=== PATIENT | male | born 1995 | race Caucasian/White ===

== ENCOUNTER 2018-04-10 01:46 | Emergency (ER) | payer BC ==
[2018-04-10] MEDS ORDERED: Sodium Chloride 0.9% 1000 ML 1,000 ML IV STA (02:03)
--- NOTE | 2018-04-10 02:03 | ERPHSYRPT ---
- History of Present Illness Source: patient, police Exam Limitations: no limitations Timing/Duration: day(s) (3), worse Severity of Symptoms-Max: moderate Severity of Symptoms-Current: mild Context related to: significant other Suicidal thoughts: specific plan Associated Symptoms: depressed, suicidal ideation Previous symptoms: same symptoms as today, no recent treatment <TAYLER MAYFIELD - Last Filed: 04/10/18 07:06> <DRAKE OVALLES - Last Filed: 04/10/18 10:23> - History of Present Illness Time Seen by Provider: 04/10/18 01:56 Physician History: The patient is a 22-year-old male brought in by police from home where he stated by text to his that he knows where the "pointy things are and how to use them". He states he is very stressed and depressed because his is bipolar and has made him stressed and depressed because of her condition. This happens to him every 3 or 4 years. He is been stressed for the past few days. When he gets stressed, he drinks alcohol. This evening he drank a 750 mL bottle of rum and about [address] Morales. He states that he had been feeling like killing himself with a knife. He denies wanting to harm anyone else. He has cut his forearms in the past but just superficially. He has never been evaluated by psychiatry or has he ever been in a psychiatric hospital. He has never seen the [facility]. He has no doctor. He takes no medicines. (TAYLER MAYFIELD) Allergies/Adverse Reactions: cephalexin [From Keflex] Allergy (Mild, Verified 04/10/18 02:05) Hives Home Medications: No Reportable Medications [No Reported Medications] 04/10/18 [History] - Review of Systems Constitutional: No Fever, No Chills Eyes: No Symptoms Ears, Nose, & Throat: No Symptoms Respiratory: No Cough, No Dyspnea Cardiac: No Chest Pain, No Edema, No Syncope Abdominal/Gastrointestinal: No Abdominal Pain, No Nausea, No Vomiting, No Diarrhea Genitourinary Symptoms: No Dysuria Musculoskeletal: No Back Pain, No Neck Pain Skin: No Rash Neurological: No Dizziness, No Focal Weakness, No Sensory Changes Psychological: Depression, Suicidal Ideations Endocrine: No Symptoms Hematologic/Lymphatic: No Symptoms Immunological/Allergic: No Symptoms All Other Systems: Reviewed and Negative <TAYLER MAYFIELD - Last Filed: 04/10/18 07:06> - Physical Exam General Appearance: no apparent distress Eyes, Ears, Nose, Throat Exam: normal ENT inspection, moist mucous membranes Neck Exam: normal inspection, non-tender, supple Respiratory Exam: normal breath sounds, lungs clear, No respiratory distress Cardiovascular Exam: regular rate/rhythm, No edema Gastrointestinal/Abdominal Exam: soft, No tenderness, No distention Extremities Exam: normal inspection, normal range of motion, No evidence of injury, No edema Current Suicidality: has suicide plan Neurological Exam: alert, oriented x 3, depressed affect Appearance: appropriate appearance, appropriate insight Behavior/Eye Contact/Speech: alert & cooperative, cooperative, normal speech Thoughts/Hallucinations: normal thought pattern Skin Exam: normal color, warm, dry, No rash SpO2 Interpretation: normal Oxygen Delivery: Room Air <TAYLER MAYFIELD - Last Filed: 04/10/18 07:06> - Nursing Vital Signs Nursing Vital Signs: Initial Vital Signs Temperature 99 F 04/10/18 01:48 Pulse Rate 100 H 04/10/18 01:48 Respiratory Rate 22 04/10/18 01:48 Blood Pressure 141/92 04/10/18 01:48 O2 Sat by Pulse Oximetry 94 L 04/10/18 01:48 Pain Scale Pain Intensity 0 Ordered Tests: Active Orders 24 hr Category Date Time Status EKG-ER Only STAT Care 04/10/18 02:03 Active IV Insertion STAT Care 04/10/18 02:03 Active Psychiatric Evaluation STAT Care 04/10/18 02:03 Active ACETAMINOPHEN Stat Lab 04/10/18 02:55 Completed CBC W DIFF Stat Lab 04/10/18 02:55 Completed CMP Stat Lab 04/10/18 02:55 Completed ETHYL ALCOHOL Stat Lab 04/10/18 02:55 Completed SALICYLATE Stat Lab 04/10/18 02:55 Completed TSH [TSH, 3RD Generation] Stat Lab 04/10/18 02:55 Completed UA W/RFX UR CULTURE Stat Lab 04/10/18 02:56 Completed Urine Triage Profile Stat Lab 04/10/18 02:56 Completed Medication Summary Discontinued Medications Generic Name Dose Route Start Last Admin Trade Name Freq PRN Reason Stop Dose Admin Sodium Chloride 1,000 mls @ 999 mls/hr 04/10/18 02:03 04/10/18 08:34 Sodium Chloride 0.9% 1000 Ml IV 04/10/18 03:03 Infused .Q1H1M STA Infusion Sodium Chloride Confirm 04/10/18 02:52 Sodium Chloride 0.9% 1000 Ml Administered 04/10/18 02:53 Dose 1,000 mls @ ud .ROUTE .K-MED ONE Lab/Rad Data: Laboratory Result Diagrams 04/10/18 02:55 04/10/18 02:55 Laboratory Results 04/10/18 04/10/18 04/10/18 Range/Units 02:56 02:56 02:55 WBC (4.0-10.5) K/mm3 RBC (4.1-5.6) M/mm3 Hgb (12.5-18.0) gm/dl Hct (42-50) % MCV (78-100) fl MCH (26-32) pg MCHC (32-36) g/dl RDW (11.5-14.0) % Plt Count (150-450) K/mm3 MPV (6-9.5) fl Gran % (36.0-66.0) % Eos # (Auto) (0-0.5) Absolute Lymphs (auto) (1.0-4.6) Absolute Monos (auto) (0.0-1.3) Lymphocytes % (24.0-44.0) % Monocytes % (0.0-12.0) % Eosinophils % (0.00-5.0) % Basophils % (0.0-0.4) % Absolute Granulocytes (1.4-6.9) Basophils # (0-0.4) Sodium (137-145) mmol/L Potassium (3.5-5.1) mmol/L Chloride (98-107) mmol/L Carbon Dioxide (22-30) mmol/L Anion Gap (5-15) MEQ/L BUN (9-20) mg/dL Creatinine (0.66-1.25) mg/dL Estimated GFR ML/MIN Glucose (74-106) mg/dL Calcium (8.4-10.2) mg/dL Total Bilirubin (0.2-1.3) mg/dL AST (17-59) U/L ALT (0-50) U/L Alkaline Phosphatase (38-126) U/L Serum Total Protein (6.3-8.2) g/dL Albumin (3.5-5.0) g/dL TSH 3rd Generation 4.250 (0.47-4.68) mIU/L Ur Collection Type VOID Urine Color YELLOW (YELLOW) Urine Appearance CLEAR (CLEAR) Urine pH 5.0 (5-6) Ur Specific [place] 1.010 (1.005-1.025) Urine Protein NEGATIVE (Negative) Urine Ketones NEGATIVE (NEGATIVE) Urine Blood NEGATIVE (0-5) Elder/ul Urine Nitrite NEGATIVE (NEGATIVE) Urine Bilirubin NEGATIVE (NEGATIVE) Urine Urobilinogen NORMAL (0-1) mg/dL Ur Leukocyte Esterase NEGATIVE (NEGATIVE) Urine Culture Reflexed NO (NO) Urine Glucose NEGATIVE (NEGATIVE) mg/dL Salicylates (2-20) mg/dL Urine Opiates Level NEGATIVE (NEGATIVE) Ur Methadone NEGATIVE (NEGATIVE) Acetaminophen (10-30) ug/ml Urine Barbiturates NEGATIVE (NEGATIVE) Ur Phencyclidine (PCP) NEGATIVE (NEGATIVE) Urine Amphetamine NEGATIVE (NEGATIVE) U Benzodiazepine Level NEGATIVE (NEGATIVE) Urine Cocaine NEGATIVE (NEGATIVE) Urine Marijuana (THC) NEGATIVE (NEGATIVE) Ethyl Alcohol (0-10) mg/dL Specimen Received 04/10/18 0245 04/10/18 04/10/18 Range/Units 02:55 02:55 WBC 6.1 (4.0-10.5) K/mm3 RBC 5.53 (4.1-5.6) M/mm3 Hgb 15.8 (12.5-18.0) gm/dl Hct 44.4 (42-50) % MCV 80.3 (78-100) fl MCH 28.6 (26-32) pg MCHC 35.6 (32-36) g/dl RDW 12.9 (11.5-14.0) % Plt Count 199 (150-450) K/mm3 MPV 10.4 H (6-9.5) fl Gran % 55.3 (36.0-66.0) % Eos # (Auto) 0.06 (0-0.5) Absolute Lymphs (auto) 1.94 (1.0-4.6) Absolute Monos (auto) 0.67 (0.0-1.3) Lymphocytes % 32.0 (24.0-44.0) % Monocytes % 11.0 (0.0-12.0) % Eosinophils % 1.0 (0.00-5.0) % Basophils % 0.7 (0.0-0.4) % Absolute Granulocytes 3.36 (1.4-6.9) Basophils # 0.04 (0-0.4) Sodium 144 (137-145) mmol/L Potassium 3.7 (3.5-5.1) mmol/L Chloride 106 (98-107) mmol/L Carbon Dioxide 27 (22-30) mmol/L Anion Gap 15.0 (5-15) MEQ/L BUN 14 (9-20) mg/dL Creatinine 0.83 (0.66-1.25) mg/dL Estimated GFR > 60.0 ML/MIN Glucose 111 H (74-106) mg/dL Calcium 9.4 (8.4-10.2) mg/dL Total Bilirubin 0.40 (0.2-1.3) mg/dL AST 37 (17-59) U/L ALT 77 H (0-50) U/L Alkaline Phosphatase 71 (38-126) U/L Serum Total Protein 7.5 (6.3-8.2) g/dL Albumin 4.6 (3.5-5.0) g/dL TSH 3rd Generation (0.47-4.68) mIU/L Ur Collection Type Urine Color (YELLOW) Urine Appearance (CLEAR) Urine pH (5-6) Ur Specific [place] (1.005-1.025) Urine Protein (Negative) Urine Ketones (NEGATIVE) Urine Blood (0-5) Elder/ul Urine Nitrite (NEGATIVE) Urine Bilirubin (NEGATIVE) Urine Urobilinogen (0-1) mg/dL Ur Leukocyte Esterase (NEGATIVE) Urine Culture Reflexed (NO) Urine Glucose (NEGATIVE) mg/dL Salicylates < 1.0 L (2-20) mg/dL Urine Opiates Level (NEGATIVE) Ur Methadone (NEGATIVE) Acetaminophen < 10 L (10-30) ug/ml Urine Barbiturates (NEGATIVE) Ur Phencyclidine (PCP) (NEGATIVE) Urine Amphetamine (NEGATIVE) U Benzodiazepine Level (NEGATIVE) Urine Cocaine (NEGATIVE) Urine Marijuana (THC) (NEGATIVE) Ethyl Alcohol 70 H (0-10) mg/dL Specimen Received <TAYLER MAYFIELD - Last Filed: 04/10/18 07:06> - Progress Progress: improved <DRAKE OVALLES - Last Filed: 04/10/18 10:23> - Progress Progress Note: 04/10/18 07:06 Pt care discussed and care transferred to Dr Ovalles at 07:00. (TAYLER MAYFIELD) 04/10/18 09:43 This is a 22-year-old white male who was initially seen by Dr. Mayfield Patient apparently has been having suicidal ideations thinking about harming himself with a knife he had been drinking Consuming of approximately 750 mL of from him 300 mL of vodka prior to arrival Patient has been upset over interactions with his he states his stresses him out. He currently states he does not want to harm himself. He has been evaluated by [facility]. Patient states he had some superficial cutting in the past he denies any significant past medical history. He states he is not taking any pills he has not taken any pills to harm himself. He denies any illicit drug use. Past medical history patient denies. Past surgical history history of a fractured arm in the past (left) Physical examination. Well-developed well-nourished white male he is alert oriented pleasant cooperative to examination. head is atraumatic normocephalic. Eyes PERRLA EOMI fundi unremarkable. Ears TMs thakkar intact bilaterally. Nose is clear. Throat is clear. Neck is supple. Lungs are clear. Heart regular rate and rhythm without murmur. Abdomen soft nontender nondistended positive bowel sounds. Extremities full range of motion pulse equal symmetrical 2 over 4. 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 Patient is pleasant and cooperative to examination. Labs CBC white blood cell 6.1 hemoglobin 15.8 hematocrit 44.4. Chemistry is within normal limits. Acetaminophen less than 10. Salicylate less than 1.0. Blood alcohol 70. Impression suicidal ideation. Depression. Plan. Case has been referred to [facility]. Telepsyche has been performed. Will plan to discharge as per their recommendations. Patient will need to follow-up with [facility] as outpatient. (DRAKE OVALLES) <TAYLER MAYFIELD - Last Filed: 04/10/18 07:06> - Departure Time of Disposition: 10:22 Departure Disposition: Home Critical Care Time: No <JOSEDRAKE - Last Filed: 04/10/18 10:23> - Departure Clinical Impression: Suicidal ideation Depression Qualifiers: Depression Type: unspecified Qualified Code(s): F32.9 - Major depressive disorder, single episode, unspecified Condition: Fair Referrals: DOCTOR,NO FAMILY [Primary Care Provider] - [facility] [Outside] Additional Instructions: Return home. No further alcohol consumption today. Follow-up with [facility] call and arrange appointment. Return for acute distress or any problems.
[2018-04-10] MEDS ORDERED: Sodium Chloride 0.9% 1000 ML 1,000 ML ONE (02:52)
[2018-04-10 02:58] LABS: BASOPHIL % 0.7 % (0.0-0.4); Basophil (Absolute #) 0.04 (0-0.4); Eosinophil (Absolute #) 0.06 (0-0.5); Granulocyte Absolute (ANC) 3.36 (1.4-6.9); Granulocytes % 55.3 % (36.0-66.0); Hematocrit 44.4 % (42-50); Hemoglobin 15.8 gm/dl (12.5-18.0); Lymphocyte (Absolute #) 1.94 (1.0-4.6); Mean Cell Volume 80.3 fl (78-100); Mean Corpuscular Hemoglobin 28.6 pg (26-32); Mean Corpuscular Hgb Concent. 35.6 g/dl (32-36); Mean Platelet Volume 10.4 fl (6-9.5); Monocyte (Absolute #) 0.67 (0.0-1.3); Platelet Count 199 K/mm3 (150-450); Red Blood Count 5.53 M/mm3 (4.1-5.6); Red Cell Distribution Width 12.9 % (11.5-14.0); White Blood Count 6.1 K/mm3 (4.0-10.5)
[2018-04-10 03:00] LABS: Appearance CLEAR (CLEAR); Bilirubin NEGATIVE (NEGATIVE); Blood NEGATIVE Ery/ul (0-5); Glucose NEGATIVE (NEGATIVE); Ketones NEGATIVE (NEGATIVE); Leukocyte Esterase NEGATIVE (NEGATIVE); Nitrite NEGATIVE (NEGATIVE); Protein,Urine Dip NEGATIVE (Negative); Urobilinogen NORMAL mg/dL (0-1)
[2018-04-10 03:16] LABS: Amphetamine,Urine NEGATIVE (NEGATIVE); Barbiturate,Urine NEGATIVE (NEGATIVE); Benzodiazepine,Urine NEGATIVE (NEGATIVE); Cocaine,Urine NEGATIVE (NEGATIVE); Methadone,Urine NEGATIVE (NEGATIVE); Opiate,Urine NEGATIVE (NEGATIVE); PCP,Urine NEGATIVE (NEGATIVE); THC,Urine NEGATIVE (NEGATIVE)
[2018-04-10 03:20] LABS: ACETAMINOPHEN < 10 ug/ml (10-30); ALBUMIN 4.6 g/dL (3.5-5.0); ALKALINE PHOSPHATASE 71 U/L (38-126); BLOOD UREA NITROGEN 14 mg/dL (9-20); CHLORIDE 106 mmol/L (98-107); Calcium 9.4 mg/dL (8.4-10.2); Carbon Dioxide 27 mmol/L (22-30); Creatinine 1 0.83 mg/dL (0.66-1.25); ETHYL ALCOHOL 70 mg/dL (0-10); Glucose 111 mg/dL (74-106); Potassium 3.7 mmol/L (3.5-5.1); SALICYLATE < 1.0 mg/dL (2-20); SGOT/AST 37 U/L (17-59); SGPT/ALT 77 U/L (0-50); SODIUM 144 mmol/L (137-145); Total Protein 7.5 g/dL (6.3-8.2)
[2018-04-10 07:19] VITALS: BP 102/60
[2018-04-10 09:58] VITALS: PULSE 72; O2SAT 99
== END 2018-04-10 10:32 | disposition home or self-care (01) ==
LOC: ED 01:46
DX: R45.851 Suicidal ideations (principal); F32.9 Major depressive disorder, single episode, unspecified
CPT/HCPCS: 36000; 36415; 80053; 80307; 81002; 84443; 85025; 90791; 93005; 96360; 99285; G0481; Q3014; G0480

== ENCOUNTER 2018-10-16 09:08 | Emergency (ER) | payer BC ==
--- NOTE | 2018-10-16 09:37 | ERPHSYRPT ---
- History of Present Illness Time Seen by Provider: 10/16/18 09:30 Patient Subjective Stated Complaint: has had nausea/vomiting x 3 days/./ pain in chest with breathing. denies fever or cough Triage Nursing Assessment: alert and anxious with c/o CP this AM with vomiting x 3 days. intermittent CP with breathing. denies fever.. lungs clear. Physician History: Patient with a history of chest pain this morning exacerbated by inspiration associated with emesis 4-5 times daily over the past 3 days. He denies diarrhea fever, difficulty breathing, cough, fever or chills. Patient describes pain as sharp in character upon inspiration. Denies radiation of pain to neck, jaw, back. Has associated arm pain. Timing/Duration: day(s) Activities at Onset: none Location: substernal Chest Pain Radiation: no radiation Severity of Pain-Max: mild Severity of Pain-Current: mild Modifying Factors: Improves With: breathing Associated Symptoms: nausea, vomiting (X 3 DAYS) Prior Chest Pain/Cardiac Workup: no prior chest pain Nitro Today/Relief: no nitro taken today Aspirin Treatment Today: no aspirin today Allergies/Adverse Reactions: cephalexin [From Keflex] Allergy (Mild, Verified 10/16/18 11:44) Hives Home Medications: No Reportable Medications [No Reported Medications] 04/10/18 [History] Hx Tetanus, Diphtheria Vaccination/Date Given: No Hx Influenza Vaccination/Date Given: Yes Hx Pneumococcal Vaccination/Date Given: Yes Immunizations Up to Date: (unknown) - Review of Systems Constitutional: No Symptoms, No Fever, No Chills Eyes: No Symptoms Ears, Nose, & Throat: No Symptoms Respiratory: No Cough, No Dyspnea Cardiac: Chest Pain, No Edema, No Syncope Abdominal/Gastrointestinal: Nausea, Vomiting, No Abdominal Pain, No Diarrhea Genitourinary Symptoms: No Dysuria Musculoskeletal: No Symptoms, No Back Pain, No Neck Pain Skin: No Symptoms, No Rash Neurological: No Dizziness, No Focal Weakness, No Sensory Changes Psychological: No Symptoms Endocrine: No Symptoms All Other Systems: Reviewed and Negative - Past Medical History Pertinent Past Medical History: Yes Psycho-Social History: Anxiety - Past Surgical History Past Surgical History: No Musculoskeletal: Other Other Surgical History: greenstick fx in left arm as a child - Social History Smoking Status: Never smoker Exposure to second hand smoke: Yes Drug Use: none Patient Lives Alone: No - Nursing Vital Signs Nursing Vital Signs: Initial Vital Signs Pulse Rate 85 10/16/18 09:20 Respiratory Rate 18 10/16/18 09:20 Blood Pressure 131/79 10/16/18 09:20 O2 Sat by Pulse Oximetry 99 10/16/18 09:20 Pain Scale Pain Intensity 2 - Physical Exam General Appearance: no apparent distress, alert Eye Exam: PERRL/EOMI, eyes nml inspection Ears, Nose, Throat Exam: normal ENT inspection, moist mucous membranes Neck Exam: normal inspection, non-tender, supple, full range of motion Respiratory Exam: normal breath sounds, chest tenderness (THERE IS PARASTERNAL CHEST TENDERNESS T-3 TO T-5), lungs clear, No respiratory distress Cardiovascular Exam: regular rate/rhythm, normal heart sounds Gastrointestinal/Abdomen Exam: soft, normal bowel sounds (NONTENDER), No tenderness, No mass Back Exam: normal inspection, No CVA tenderness, No vertebral tenderness Extremity Exam: normal inspection, normal range of motion Neurologic Exam: alert, oriented x 3, cooperative, normal mood/affect, sensation nml, No motor deficits Skin Exam: normal color, warm, dry SpO2: 99 Oxygen Delivery: Room Air - Course EKG Interpreted by Me: RATE, Sinus Rhythm, Sinus Tach, NORMAL AXIS, Other ( REPEAT EKG AT 1052 CONSISTENT WITH NORMAL SINUS RHYTHM RATE [address] WAVE CHANGES) Rhythm Strip: 1st degree block Ordered Tests: Active Orders 24 hr Category Date Time Status Psychology Technician STAT Care 10/16/18 09:37 Active EKG-ER Only STAT Care 10/16/18 09:37 Active EKG-ER Only STAT Care 10/16/18 10:43 Active IV Insertion STAT Care 10/16/18 09:37 Active CHEST 1 VIEW (PORTABLE) Stat Exams 10/16/18 09:37 Taken CBC W DIFF Stat Lab 10/16/18 10:02 Completed CMP Stat Lab 10/16/18 10:02 Completed D-DIMER QUANTITATION Stat Lab 10/16/18 10:02 Completed TROPONIN Q3H Lab 10/16/18 10:02 Completed TROPONIN Q3H Lab 10/16/18 12:45 Ordered TROPONIN Q3H Lab 10/16/18 15:45 Ordered TROPONIN Q3H Lab 10/16/18 18:45 Ordered TROPONIN Q3H Lab 10/16/18 21:45 Ordered UA W/RFX UR CULTURE Stat Lab 10/16/18 10:32 Completed Medication Summary Discontinued Medications Generic Name Dose Route Start Last Admin Trade Name Mamadouq PRN Reason Stop Dose Admin Aspirin 324 mg 10/16/18 10:38 10/16/18 11:00 Baby Aspirin 81 Mg Chew PO 10/16/18 10:39 324 mg STAT ONE Administration Aspirin Confirm 10/16/18 10:56 Baby Aspirin 81 Mg Chew Administered 10/16/18 10:57 Dose 324 mg .ROUTE .STK-MED ONE Enoxaparin Sodium 100 mg 10/16/18 10:52 10/16/18 11:04 Enoxaparin Sodium 1 mg/kg (100 mg) 10/16/18 10:53 100 mg SQ Administration STAT ONE Enoxaparin Sodium Confirm 10/16/18 11:02 Enoxaparin Sodium Administered 10/16/18 11:03 Dose 120 mg SQ .STK-MED ONE Sodium Chloride 1,000 mls @ 999 mls/hr 10/16/18 09:37 10/16/18 11:07 Sodium Chloride 0.9% 1000 Ml IV 10/16/18 10:37 Infused .Q1H1M STA Infusion Sodium Chloride Confirm 10/16/18 09:42 Sodium Chloride 0.9% 1000 Ml Administered 10/16/18 09:43 Dose 1,000 mls @ ud .ROUTE .STK-MED ONE Ketorolac Tromethamine 30 mg 10/16/18 09:38 10/16/18 09:46 Toradol 30 Mg Injection IV 10/16/18 09:39 30 mg STAT ONE Administration Ketorolac Tromethamine Confirm 10/16/18 09:42 Toradol 30 Mg Injection Administered 10/16/18 09:43 Dose 30 mg .ROUTE .STK-MED ONE Nitroglycerin 0.4 mg 10/16/18 10:38 10/16/18 11:00 Nitrostat 0.4 Mg (Ed) SL 10/16/18 10:39 0.4 mg STAT ONE Administration Nitroglycerin 1 gm 10/16/18 10:38 10/16/18 11:00 Nitro-Bid 2% Ud Packets TOP 10/16/18 10:39 1 gm STAT ONE Administration Nitroglycerin Confirm 10/16/18 10:56 Nitro-Bid 2% Ud Packets Administered 10/16/18 10:57 Dose 1 gm .ROUTE .STK-MED ONE Nitroglycerin Confirm 10/16/18 10:57 Nitrostat 0.4 Mg (Ed) Administered 10/16/18 10:58 Dose 0.4 mg SL .STK-MED ONE Ondansetron HCl 4 mg 10/16/18 09:38 10/16/18 09:47 Zofran 4 Mg/2 Ml Vial IV 10/16/18 09:39 4 mg STAT ONE Administration Ondansetron HCl Confirm 10/16/18 09:42 Zofran 4 Mg/2 Ml Vial Administered 10/16/18 09:43 Dose 4 mg .ROUTE .STK-MED ONE Lab/Rad Data: Laboratory Result Diagrams 10/16/18 10:02 10/16/18 10:02 Laboratory Results 10/16/18 10/16/18 10/16/18 Range/Units 10:32 10:02 10:02 WBC (4.0-10.5) K/mm3 RBC (4.1-5.6) M/mm3 Hgb (12.5-18.0) gm/dl Hct (42-50) % MCV (78-100) fl MCH (26-32) pg MCHC (32-36) g/dl RDW (11.5-14.0) % Plt Count (150-450) K/mm3 MPV (6-9.5) fl Gran % (36.0-66.0) % Eos # (Auto) (0-0.5) Absolute Lymphs (auto) (1.0-4.6) Absolute Monos (auto) (0.0-1.3) Lymphocytes % (24.0-44.0) % Monocytes % (0.0-12.0) % Eosinophils % (0.00-5.0) % Basophils % (0.0-0.4) % Absolute Granulocytes (1.4-6.9) Basophils # (0-0.4) D-Dimer 277 (215-500) ng/mL Sodium (137-145) mmol/L Potassium (3.5-5.1) mmol/L Chloride (98-107) mmol/L Carbon Dioxide (22-30) mmol/L Anion Gap (5-15) MEQ/L BUN (9-20) mg/dL Creatinine (0.66-1.25) mg/dL Estimated GFR ML/MIN Glucose (74-106) mg/dL Calcium (8.4-10.2) mg/dL Total Bilirubin (0.2-1.3) mg/dL AST (17-59) U/L ALT (0-50) U/L Alkaline Phosphatase (38-126) U/L Troponin I 1.030 H* (0.000-0.034) ng/mL Serum Total Protein (6.3-8.2) g/dL Albumin (3.5-5.0) g/dL Urine Color YELLOW (YELLOW) Urine Appearance CLEAR (CLEAR) Urine pH 5.0 (5-6) Ur Specific [place] 1.019 (1.005-1.025) Urine Protein NEGATIVE (Negative) Urine Ketones NEGATIVE (NEGATIVE) Urine Blood NEGATIVE (0-5) Elder/ul Urine Nitrite NEGATIVE (NEGATIVE) Urine Bilirubin NEGATIVE (NEGATIVE) Urine Urobilinogen 4 (0-1) mg/dL Ur Leukocyte Esterase NEGATIVE (NEGATIVE) Urine WBC (Auto) 3-5 (0-5) /HPF Urine RBC (Auto) NONE (0-2) /HPF U Epithel Cells (Auto) NONE (FEW) /HPF Urine Mucus (Auto) SLIGHT (NEGATIVE) /HPF Urine Culture Reflexed NO (NO) Urine Glucose NEGATIVE (NEGATIVE) mg/dL 10/16/18 10/16/18 Range/Units 10:02 10:02 WBC 4.0 (4.0-10.5) K/mm3 RBC 5.48 (4.1-5.6) M/mm3 Hgb 15.5 (12.5-18.0) gm/dl Hct 45.1 (42-50) % MCV 82.3 (78-100) fl MCH 28.3 (26-32) pg MCHC 34.4 (32-36) g/dl RDW 13.3 (11.5-14.0) % Plt Count 159 (150-450) K/mm3 MPV 10.7 H (6-9.5) fl Gran % 47.7 (36.0-66.0) % Eos # (Auto) 0.06 (0-0.5) Absolute Lymphs (auto) 1.23 (1.0-4.6) Absolute Monos (auto) 0.78 (0.0-1.3) Lymphocytes % 30.8 (24.0-44.0) % Monocytes % 19.5 H (0.0-12.0) % Eosinophils % 1.5 (0.00-5.0) % Basophils % 0.5 (0.0-0.4) % Absolute Granulocytes 1.91 (1.4-6.9) Basophils # 0.02 (0-0.4) D-Dimer (215-500) ng/mL Sodium 140 (137-145) mmol/L Potassium 3.6 (3.5-5.1) mmol/L Chloride 102 (98-107) mmol/L Carbon Dioxide 29 (22-30) mmol/L Anion Gap 13.5 (5-15) MEQ/L BUN 10 (9-20) mg/dL Creatinine 0.84 (0.66-1.25) mg/dL Estimated GFR > 60.0 ML/MIN Glucose 119 H (74-106) mg/dL Calcium 9.1 (8.4-10.2) mg/dL Total Bilirubin 0.90 (0.2-1.3) mg/dL AST 34 (17-59) U/L ALT 59 H (0-50) U/L Alkaline Phosphatase 56 (38-126) U/L Troponin I (0.000-0.034) ng/mL Serum Total Protein 7.2 (6.3-8.2) g/dL Albumin 4.2 (3.5-5.0) g/dL Urine Color (YELLOW) Urine Appearance (CLEAR) Urine pH (5-6) Ur Specific [place] (1.005-1.025) Urine Protein (Negative) Urine Ketones (NEGATIVE) Urine Blood (0-5) Elder/ul Urine Nitrite (NEGATIVE) Urine Bilirubin (NEGATIVE) Urine Urobilinogen (0-1) mg/dL Ur Leukocyte Esterase (NEGATIVE) Urine WBC (Auto) (0-5) /HPF Urine RBC (Auto) (0-2) /HPF U Epithel Cells (Auto) (FEW) /HPF Urine Mucus (Auto) (NEGATIVE) /HPF Urine Culture Reflexed (NO) Urine Glucose (NEGATIVE) mg/dL - Progress Progress Note: 10/16/18 09:49 IV HYDRATION WITH NORMAL SALINE 1 l/HOUR, ZOFRAN 4 MG 30 TORADOL MG IV. ELEVATED TROPONIN 1.030, ADMINISTERED ASA 324MG, NTG 0.4MG SL, NITROPASTE 1 "ANTERIOR CHEST WALL, LOVENOX 100MG SUBQ AND REPEAT EKG NSR RATE 73, NO ISCHEMIC CHANGES NOTED 10/16/18 11:00 [address]iscuss[address] with DrHunter: Other (DISCUSSED WITH DR BUSTILLO AT 1115 FOR TRANSFER TO [facility] EMERG[facility] ROOM VIA [facility]) - Departure Time of Disposition: 12:10 Departure Disposition: Observation Clinical Impression: ACUTE CHEST PAIN, ELEVATED TROPONIN Condition: Stable Critical Care Time: No Referrals: DOCTOR,NO FAMILY [Primary Care Provider] -
[2018-10-16] MEDS ORDERED: TORAdol 30 mg Injection ONE (09:42)
[2018-10-16] MEDS ORDERED: Zofran 4 MG/2 ML VIAL ONE (09:42)
[2018-10-16] MEDS ORDERED: Sodium Chloride 0.9% 1000 ML 1,000 ML ONE (09:42)
[2018-10-16] MEDS: Sodium Chloride 0.9% 1000 ML 1,000 ML IV STA (09:46)
[2018-10-16] MEDS: TORAdol 30 mg Injection IV ONE (09:46)
[2018-10-16] MEDS: Zofran 4 MG/2 ML VIAL IV ONE (09:47)
[2018-10-16 10:10] LABS: BASOPHIL % 0.5 % (0.0-0.4); Basophil (Absolute #) 0.02 (0-0.4); Eosinophil % 1.5 % (0.00-5.0); Eosinophil (Absolute #) 0.06 (0-0.5); Granulocytes % 47.7 % (36.0-66.0); Hematocrit 45.1 % (42-50); Hemoglobin 15.5 gm/dl (12.5-18.0); Lymphocyte (Absolute #) 1.23 (1.0-4.6); Lymphocytes % 30.8 % (24.0-44.0); Mean Cell Volume 82.3 fl (78-100); Mean Corpuscular Hemoglobin 28.3 pg (26-32); Mean Corpuscular Hgb Concent. 34.4 g/dl (32-36); Mean Platelet Volume 10.7 fl (6-9.5); Monocyte (Absolute #) 0.78 (0.0-1.3); Monocytes % 19.5 % (0.0-12.0); Platelet Count 159 K/mm3 (150-450); Red Blood Count 5.48 M/mm3 (4.1-5.6); Red Cell Distribution Width 13.3 % (11.5-14.0)
[2018-10-16 10:24] LABS: ALBUMIN 4.2 g/dL (3.5-5.0); ALKALINE PHOSPHATASE 56 U/L (38-126); ANION GAP 13.5 MEQ/L (5-15); BLOOD UREA NITROGEN 10 mg/dL (9-20); CHLORIDE 102 mmol/L (98-107); Calcium 9.1 mg/dL (8.4-10.2); Carbon Dioxide 29 mmol/L (22-30); Creatinine 1 0.84 mg/dL (0.66-1.25); Glucose 119 mg/dL (74-106); Potassium 3.6 mmol/L (3.5-5.1); SGOT/AST 34 U/L (17-59); SGPT/ALT 59 U/L (0-50); SODIUM 140 mmol/L (137-145); Total Protein 7.2 g/dL (6.3-8.2)
[2018-10-16 10:38] LABS: Appearance CLEAR (CLEAR); Bilirubin NEGATIVE (NEGATIVE); Blood NEGATIVE Ery/ul (0-5); Glucose NEGATIVE (NEGATIVE); Ketones NEGATIVE (NEGATIVE); Leukocyte Esterase NEGATIVE (NEGATIVE); Mucus SLIGHT /HPF (NEGATIVE); Nitrite NEGATIVE (NEGATIVE); Protein,Urine Dip NEGATIVE (Negative); Specific Gravity 1.019 (1.005-1.025); Urobilinogen 4 mg/dL (0-1)
[2018-10-16] MEDS ORDERED: BABY ASPIRIN 81 MG CHEW ONE (10:56)
[2018-10-16] MEDS ORDERED: NITRO-BID 2% UD PACKETS ONE (10:56)
[2018-10-16] MEDS ORDERED: Nitrostat 0.4 MG (ED) SL ONE (10:57)
[2018-10-16] MEDS: NITRO-BID 2% UD PACKETS TOP ONE (11:00)
[2018-10-16] MEDS: BABY ASPIRIN 81 MG CHEW PO ONE (11:00)
[2018-10-16] MEDS: Nitrostat 0.4 MG (ED) SL ONE (11:00)
[2018-10-16] MEDS ORDERED: ENOXAPARIN SODIUM SQ ONE (11:02)
[2018-10-16] MEDS: ENOXAPARIN SODIUM SQ ONE (11:04)
[2018-10-16 11:34] VITALS: BP 126/88; PULSE 78
[2018-10-16 12:11] VITALS: O2SAT 99
--- NOTE | 2018-10-16 18:34 | XRAY ---
Indication: Chest, left arm, and face pain. Short of breath. Comparison: None Portable chest demonstrates normal heart, lungs, and bony thorax.
== END 2018-10-16 12:22 | disposition short-term general hospital (02) ==
LOC: ED 09:08
DX: R07.9 Chest pain, unspecified (principal); R74.8 Abnormal levels of other serum enzymes; R11.2 Nausea with vomiting, unspecified; M79.603 Pain in arm, unspecified; F41.9 Anxiety disorder, unspecified
CPT/HCPCS: 36000; 36415; 71045; 80053; 81001; 84484; 85025; 85379; 93005; 93041; 96360; 96372; 96374; 96375; 99285; J1650; J1885; J2405; A9270-GY